=== PATIENT | male | born 1955 | race Caucasian/White ===

== ENCOUNTER → 2024-01-30 12:20 | Outpatient (REF) | payer MEDICARE, OTHER, SELFPAY | LOC: RAD 12:20 | PROVIDERS: ATTENDING PHYSICIAN Nurse Practitioner Family | DX: M79.671 Pain in right foot (principal) | CPT/HCPCS: 73630 ==

== ENCOUNTER → 2024-02-10 12:25 | Outpatient (REF) | payer MEDICARE, OTHER, SELFPAY | LOC: WOUND 12:25 | PROVIDERS: ATTENDING PHYSICIAN Surgery; FAMILY PHYSICIAN Family Medicine | DX: L97.412 Non-pressure chronic ulcer of right heel and midfoot with fat layer exposed (principal); M21.961 Unspecified acquired deformity of right lower leg; I87.2 Venous insufficiency (chronic) (peripheral); I10 Essential (primary) hypertension; R73.03 Prediabetes | CPT/HCPCS: 99204 ==

== ENCOUNTER → 2024-02-17 12:23 | Outpatient (REF) | payer MEDICARE, OTHER, SELFPAY | LOC: WOUND 12:23 | PROVIDERS: ATTENDING PHYSICIAN Surgery; FAMILY PHYSICIAN Family Medicine | DX: L97.412 Non-pressure chronic ulcer of right heel and midfoot with fat layer exposed (principal); M21.961 Unspecified acquired deformity of right lower leg; I87.2 Venous insufficiency (chronic) (peripheral); I10 Essential (primary) hypertension; R73.03 Prediabetes | CPT/HCPCS: 99213 ==

== ENCOUNTER → 2024-03-09 11:13 | Outpatient (REF) | payer MEDICARE, OTHER, SELFPAY | LOC: WOUND 11:13 | PROVIDERS: ATTENDING PHYSICIAN Surgery; FAMILY PHYSICIAN Family Medicine | DX: L97.412 Non-pressure chronic ulcer of right heel and midfoot with fat layer exposed (principal); M21.961 Unspecified acquired deformity of right lower leg; I87.2 Venous insufficiency (chronic) (peripheral); I10 Essential (primary) hypertension; R73.03 Prediabetes | CPT/HCPCS: 93971; 99213 ==

== ENCOUNTER → 2024-03-16 14:16 | Outpatient (REF) | payer MEDICARE, OTHER, SELFPAY | LOC: WOUND 14:16 | PROVIDERS: ATTENDING PHYSICIAN Surgery; FAMILY PHYSICIAN Family Medicine | DX: L97.412 Non-pressure chronic ulcer of right heel and midfoot with fat layer exposed (principal); M21.961 Unspecified acquired deformity of right lower leg; I87.2 Venous insufficiency (chronic) (peripheral); I10 Essential (primary) hypertension; R73.03 Prediabetes | CPT/HCPCS: 99213 ==

== ENCOUNTER → 2024-03-30 13:39 | Outpatient (REF) | payer MEDICARE, OTHER, SELFPAY | LOC: WOUND 13:39 | PROVIDERS: ATTENDING PHYSICIAN Surgery; FAMILY PHYSICIAN Family Medicine | DX: L97.412 Non-pressure chronic ulcer of right heel and midfoot with fat layer exposed (principal); I16.9 Hypertensive crisis, unspecified; M21.961 Unspecified acquired deformity of right lower leg; I87.2 Venous insufficiency (chronic) (peripheral); I10 Essential (primary) hypertension; R73.03 Prediabetes | CPT/HCPCS: 99213 ==

== ENCOUNTER 2024-03-30 14:05 | Emergency (ER) | payer MEDICARE, SELFPAY ==
[2024-03-30 14:30] VITALS: BP 188/119
[2024-03-30 15:29] LABS: % Basophils 0.4 % (0-2); % Immature Granulocytes 0.1 % (0-0.5); % Lymphocytes 25.3 % (20.5-51.1); % Neutrophils 64.2 % (42.2-75.2); Absolute Lymphocytes 2.1 10^3/uL (1.2-3.4); Absolute Monocytes 0.8 10^3/uL (0.1-0.6); Absolute Neutrophils 5.3 10^3/uL (1.4-6.5); Hematocrit 46.9 % (39.0-52.0); Hemoglobin 15.8 g/dL (13.0-18.0); Mean Corp Hgb Conc. 33.7 g/dL (33.0-37.0); Mean Corpuscular Hgb 28.3 pg (27.0-31.0); Mean Corpuscular Volume 83.9 fL (80.0-94.0); Mean Platelet Volume 9.7 fL (7.4-10.4); Nucleated Red Blood Cells % 0 % (-); Platelet Count 203 10^3/uL (130-400); Red Blood Cell Count 5.59 10^6/uL (4.70-6.10); Red Cell Dist. Width 13.6 % (11.5-14.5); White Blood Cell Count 8.3 10^3/uL (4.8-10.8)
[2024-03-30 15:41] LABS: ALT (SGPT) 29 U/L (0-50); AST (SGOT) 34 U/L (17-59); Albumin 4.2 g/dl (3.5-5.0); Alkaline Phosphatase 81 U/L (38-126); Blood Urea Nitrogen 24 mg/dl (9-20); Calcium 9.6 mg/dl (8.4-10.2); Carbon Dioxide 32 mmol/L (22-30); Chloride 102 mmol/L (98-107); Glucose 100 mg/dl (70-99); Potassium 4.3 mmol/L (3.5-5.1); Sodium 140 mmol/L (135-145); Total Bilirubin 1.3 mg/dl (0.2-1.3); Total Protein 7.5 g/dl (6.3-8.2); eGFR > 60.00
[2024-03-30 16:00] VITALS: BP 178/91
[2024-03-30 18:17] VITALS: BP 182/96
--- NOTE | 2024-03-30 18:41 | ED.GENMED ---
History of Present Illness
General
Chief Complaint: Blood Pressure Problem
Source: patient
Exam Limitations: none
Time Seen by Provider: 03/30/24 18:38
Nursing documentation reviewed up to this point in time: agreed with
History of Present Illness
History of Present Illness:
Patient is a very pleasant 68-year-old man who reports that he was at the wound care clinic and was found to have elevated blood pressure today. Patient reports that he was told in the past that his blood pressure was elevated on several occasions
but he reports that he has never been started on any medication and was trying natural supplements instead. Patient denies chest pain, shortness of breath, headache, and dizziness. He denies all symptoms. Patient reports he feels well
Past History
Past History
ED Past Medical History: HTN (Patient told several times that his blood pressure was elevated on several occasions)
ED Past Surgical History: Other
Social History
Tobacco: Non-smoker
Alcohol: Other
Drug: None
Personal: Other
Living: with family
Employment: Employed
Family History
Family History: Other
Review of Systems
Review of Systems
Allergies reviewed?: Yes
All Other Systems: ROS reviewed and negative except as documented in HPI and ROS
Constitutional: Reports no symptoms
EENT: Reports no symptoms
Respiratory: Reports no symptoms
Cardiac: Reports no symptoms
ABD/GI: Reports no symptoms
: Reports no symptoms
Musculoskeletal: Reports no symptoms
Skin: Reports no symptoms
Neurological: Reports no symptoms
Endocrine: Reports no symptoms
Hematologic/Lymphatic: Reports no symptoms
Psychiatric: Reports no symptoms
Phy Exam
Physical Exam
Physical Exam:
Physical Exam
General: no apparent distress, not acutely ill
Neck: supple. no meningeal signs. normal psoterior pharynx
Heart: s1/s2 regular rate and rhythm, no murmur. equal radial pulses.
Lungs: no acute respiratory distress. clear bilaterally
Abdomen: normal bowel sounds. not tender. no CVAT
Neuro: alert and oriented. no focal neurological deficits
Skin: no rash
Psychiatric: well kept. interactive and cooperative
Extremities: no edema. no calf tenderness. negative homans. good distal pulses
Course
Orders/Labs/Results
Orders:
Orders
03/30/24 14:33
ECG [Electrocardiogram (*1)] Urgent
Reason for Study: Hypertension, Benign
EKG- Treatment ONCE
03/30/24 15:06
CMP [Comprehensive Metabolic Panel] Urgent
Complete Blood Count/With Diff Urgent
03/30/24 18:48
Amlodipine [Norvasc] 5 mg PO NOW STA
Abnormal Lab Results
03/30/24
15:06
Absolute Monos (auto) 0.8 H 10^3/uL
(0.1-0.6)
Monocytes % 10.0 H %
(1.7-9.3)
Carbon Dioxide 32 H mmol/L
(22-30)
BUN 24 H mg/dl
(9-20)
Glucose 100 H mg/dl
(70-99)
03/30/24 15:06
03/30/24 15:06
Vital Signs
Initial and Last Documented VS:
Initial Vital Signs
Temp Pulse Resp BP Pulse Ox
98.0 F 78 20 188/119 99
03/30/24 14:30 03/30/24 14:30 03/30/24 14:30 03/30/24 14:30 03/30/24 14:30
Last Documented Vital Signs
Temp Pulse Resp BP Pulse Ox
97.9 F 67 18 182/96 98
03/30/24 16:00 03/30/24 18:17 03/30/24 18:17 03/30/24 18:17 03/30/24 18:17
MDM/Problems Addressed
Differential Diagnosis Includes:
Uncontrolled hypertension, hypertensive urgency, hypertensive emergency
MDM/Problems Addressed:
Patient arrives with elevated blood pressure
Chronic conditions affecting care: HTN
Acute Exacerbation and/or Progression of Chronic Illness:
Patient likely has progression of uncontrolled hypertension
*Pulse Oximetry
Patient hypoxic: no
*EKG
Interpreted by ED Provider?: Yes
Interpretation: abnormal
Comparison EKG: no comparison EKG present
Rate: normal
Rhythm: sinus
[place]: left axis deviation
Interval: normal interval
QRS Pattern: normal QRS
Ischemia: no ischemia
*Licensed Architect Interpretation
Rate: normal
Interpretation: normal
Rhythm: sinus
*Critical Care Note
Total Time (30-74mins, 75-104mins- exclusive of procedures): Not Applicable
Data Reviewed
Source: patient
Patient Management
Social determinants of health affecting care: Living situation and Strong social support
Escalation/DeEscalation of care consider admission/obs:
Patient is asymptomatic and has normal-appearing blood work. Patient will be started on blood pressure medication given that he reports he has had blood pressure that has been elevated on several occasions. Patient assures me he can follow-up with
his doctor in about a week to have his blood pressure rechecked.
ED Attending Note
-
Portions of this chart may have been created with voice recognition software.� Occasional wrong word or��sound alike� substitutions may have occurred due to the inherent limitations of voice recognition software.
Discharge Plan
Departure
Patient Disposition: Home (Routine Discharge)
Date of Disposition: 03/30/24
Time of Disposition: 18:48
Patient with high blood pressure during this ER visit?: Yes
Condition: Good
Covid-19: Not Applicable
Discharge Problem:
Hypertension
Instructions: High Blood Pressure (DC), BLOOD PRESSURE
Prescriptions:
New
amlodipine [Norvasc] 5 mg tablet
5 mg PO DAILY Qty: 30 0RF
Activity Restrictions/Additional Instructions:
Please see your doctor in 5 to 7 days to have your blood pressure rechecked. Please discuss the blood pressure medication that we started you on with your primary care doctor
Interventions
Interventions:
*Risk Screen - Suicide Last Done: 03/30/24 19:05
*General Assessment Last Done: 03/30/24 14:30
*Neglect/Abuse Screening Last Done: 03/30/24 19:05
ED- Fall Risk Assessment Last Done: 03/30/24 19:05
*ED COVID-19 Vaccine History Last Done: 03/30/24 19:05
*Nursing Disposition Last Done: 03/30/24 19:05
ED- Cardiac Assessment Last Done: 03/30/24 18:46
ED- Neurological Assessment Last Done: 03/30/24 18:46
ED- Pulmonary Assessment Last Done: 03/30/24 18:46
Discharge Date and Time
Discharge Date/Time: 03/30/24 19:06
Print Language: ARMENIAN
[2024-03-30] MEDS: NORVASC 5 MG PO (18:56)
== END 2024-03-30 19:06 | disposition home or self-care (01) ==
LOC: EMR 14:05
PROVIDERS: Physician Assistant; EMERGENCY PHYSICIAN Emergency Medicine; FAMILY PHYSICIAN Family Medicine
DX: I10 Essential (primary) hypertension (principal)
CPT/HCPCS: 99284; 80053; 85025; 93005

== ENCOUNTER 2024-06-13 06:16 | Day surgery (SDC) | payer MEDICARE, OTHER, SELFPAY | END 2024-06-13 10:41 | disposition home or self-care (01) | LOC: GI 06:16 | PROVIDERS: ATTENDING PHYSICIAN Specialist | DX: Z12.11 Encounter for screening for malignant neoplasm of colon (principal); D12.3 Benign neoplasm of transverse colon; D12.5 Benign neoplasm of sigmoid colon; K63.5 Polyp of colon; K62.1 Rectal polyp; Z86.0101 Personal history of adenomatous and serrated colon polyps; Z98.890 Other specified postprocedural states | CPT/HCPCS: 45385; 45380; 88305 ==

== ENCOUNTER 2024-09-14 21:01 | Inpatient (IN) | payer MEDICARE, OTHER, SELFPAY ==
[2024-09-14 18:03] VITALS: BP 179/95
[2024-09-14 19:10] VITALS: BMI 33.0
[2024-09-14 19:32] LABS: % Basophils 0.4 % (0-2); % Eosinophils 2.8 % (0-6); % Immature Granulocytes 0.3 % (0-0.5); % Lymphocytes 18.8 % (20.5-51.1); % Monocytes 12.8 % (1.7-9.3); % Neutrophils 64.9 % (42.2-75.2); Absolute Eosinophils 0.2 10^3/uL (0-0.7); Absolute Lymphocytes 1.5 10^3/uL (1.2-3.4); Hematocrit 41.6 % (39.0-52.0); Hemoglobin 14.4 g/dL (13.0-18.0); Mean Corp Hgb Conc. 34.6 g/dL (33.0-37.0); Mean Corpuscular Hgb 28.5 pg (27.0-31.0); Mean Corpuscular Volume 82.2 fL (80.0-94.0); Mean Platelet Volume 9.8 fL (7.4-10.4); Nucleated Red Blood Cells % 0 % (-); Platelet Count 193 10^3/uL (130-400); Red Blood Cell Count 5.06 10^6/uL (4.70-6.10); Red Cell Dist. Width 13.7 % (11.5-14.5); White Blood Cell Count 7.7 10^3/uL (4.8-10.8)
[2024-09-14 19:37] LABS: Lactic Acid 1.4 mmol/L (0.7-2.0)
[2024-09-14 19:40] LABS: ALT (SGPT) 22 U/L (0-50); AST (SGOT) 25 U/L (17-59); Albumin 3.9 g/dl (3.5-5.0); Alkaline Phosphatase 68 U/L (38-126); Blood Urea Nitrogen 28 mg/dl (9-20); Calcium 9.6 mg/dl (8.4-10.2); Carbon Dioxide 27 mmol/L (22-30); Chloride 108 mmol/L (98-107); Estimated Creatinine Clearance 91 ml/min; Glucose 173 mg/dl (70-99); Potassium 3.8 mmol/L (3.5-5.1); Sodium 140 mmol/L (135-145); Total Bilirubin 1.6 mg/dl (0.2-1.3); Total Protein 7.4 g/dl (6.3-8.2); eGFR > 60.00
--- NOTE | 2024-09-14 19:49 | ED.GENMED ---
History of Present Illness
General
Chief Complaint: Skin Problem
Source: patient
Time Seen by Provider: 09/14/24 19:16
History of Present Illness
History of Present Illness:
Note:
CHIEF COMPLAINT(S)
Foot pain and drainage.
HISTORY OF PRESENT ILLNESS
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 The condition has persisted for seven months. He reports that
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 The patient reports no fever, chills, or sweats. There is no history of neuropathy, but
the patient experiences extreme pain. He was advised by a physician that he is pre-diabetic. The pain is described as severe but the patient declined pain medication at this time.
ADDITIONAL HISTORY OBTAINED FROM SOURCES OTHER THAN THE PATIENT
According to prior medical guidance, the patient was advised to keep the foot wound open.
CHRONIC MEDICAL CONDITIONS SIGNIFICANTLY AFFECTING CARE
Chronic conditions affecting care: Pre-diabetes.
SOCIAL DETERMINANTS AFFECTING HEALTH
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 No additional social determinants affecting health were discussed.
ALLERGIES
The patient reports no medication allergies.
Past History
Past History
ED Past Medical History: HTN (Patient told several times that his blood pressure was elevated on several occasions) and NIDDM
ED Past Surgical History: Orthopedic
Social History
Tobacco: Non-smoker
Alcohol: Occasional
Drug: None
Personal: Other
Living: with family
Employment: Employed
Family History
Family History: Other
Review of Systems
Review of Systems
All Other Systems: ROS reviewed and negative except as documented in HPI and ROS
Phy Exam
Physical Exam
Physical Exam:
GENERAL: Alert , in no apparent distress
EYE: conjunctiva clear
Head: Normocephalic atraumatic
NECK: Supple,
ENT: mmm.
LUNGS: no acute respiratory distress
NEUROLOGICAL: Alert and oriented
SKIN: Warm and dry, 7 mm circular wound to the plantar surface of the right foot around the 2nd and 3rd metatarsal, somewhat dry however bandage does have yellowish drainage. Minimal surrounding erythema. Slightly tender to palpation
MUSCULOSKELETAL: well perfused. Palpable pedal and tibial pulse. Cap refill less than 2 seconds. Sensation grossly intact to light touch.
PSYCH: Normal and appropriate interaction.
Scores
Heart Failure Risk
Heart Failure Risk Score: Not Applicable
Heart Score for Chest Pain Patients
STEMI patient?: Not applicable
Withdrawal Assessment of Alcohol
Withdrawal Assessment Completed?: Not applicable
Course
Orders/Labs/Results
Orders:
Orders
09/14/24 19:17
C-Reactive Protein Urgent
Comment: ADD ON
Complete Blood Count/With Diff Urgent
Comprehensive Metabolic Panel Urgent
Erythrocyte Sed Rate Urgent
Comment: ADD ON
Lactate Level [Lactic Acid] Urgent
09/14/24 19:35
Add On- LAB Urgent
Tests Added?: ESR/CRP
09/14/24 19:36
Wound Culture [Wound/Abscess/Other Culture] Urgent
KAI Source: Foot
Specimen Description: Right
Date Specimen was Collected: 09/14/24
Time Specimen was Collected: 20:01
Abnormal Lab Results
09/14/24
19:17
Absolute Monos (auto) 1.0 H 10^3/uL
(0.1-0.6)
Lymphocytes % 18.8 L %
(20.5-51.1)
Monocytes % 12.8 H %
(1.7-9.3)
Chloride 108 H mmol/L
(98-107)
BUN 28 H mg/dl
(9-20)
Glucose 173 H mg/dl
(70-99)
Total Bilirubin 1.6 H mg/dl
(0.2-1.3)
09/14/24 19:17
09/14/24 19:17
Vital Signs
Initial and Last Documented VS:
Initial Vital Signs
Temp Pulse Resp BP Pulse Ox
98.8 F 82 16 179/95 96
09/14/24 18:03 09/14/24 18:03 09/14/24 18:03 09/14/24 18:03 09/14/24 18:03
Last Documented Vital Signs
Temp Pulse Resp BP Pulse Ox
98.8 F 82 16 179/95 96
09/14/24 18:03 09/14/24 18:03 09/14/24 18:03 09/14/24 18:03 09/14/24 19:50
MDM/Problems Addressed
Differential Diagnosis Includes:
The Differential Diagnosis includes, in no particular order and is not limited to:
1. Osteomyelitis
2. Diabetic foot ulcer
3. Cellulitis
4. Gout
5. Peripheral arterial disease
6. Septic arthritis
7. Tarsal tunnel syndrome
MDM/Problems Addressed:
The patient will be admitted for intravenous antibiotics, likely with a peripherally inserted central catheter (PICC line) or midline for ongoing home therapy if osteomyelitis is confirmed. Consultations with infectious disease specialists and
podiatry will be arranged to evaluate for potential surgical intervention if necessary. An MRI may be performed at a later date to evaluate the extent of involvement of deeper structures.
*Pulse Oximetry
SaO2: 96
Oxygen Mode of Delivery: Room air
*Critical Care Note
Total Time (30-74mins, 75-104mins- exclusive of procedures): Not Applicable
Data Reviewed
Review of Other/Old Records Reveals: Radiology Studies
Source: patient and records
Patient Management
Discussion with other providers: Hospitalist and Material Worker
Escalation/DeEscalation of care consider admission/obs:
Case was discussed with hospitalist team who accepts patient for continued evaluation and treatment. I did also notify patient's refrigeration tech, Dr. Khanna, who would like us to hold on antibiotics at this time. She will see the patient in
consultation tomorrow and also agrees with plan for ID consult.
ED Attending Note
-
Portions of this chart may have been created with voice recognition software.� Occasional wrong word or��sound alike� substitutions may have occurred due to the inherent limitations of voice recognition software.
Discharge Plan
Departure
Patient Disposition: Admit
Date of Disposition: 09/14/24
Time of Disposition: 19:50
Presentation/result/management discussed w/ accepting MD/DO: Hospitalist
Discharge Problem:
Acute osteomyelitis of right foot
Prescriptions:
No Action
amlodipine [Norvasc] 5 mg tablet
5 mg PO DAILY Qty: 30 0RF
Referrals:
Ryan Sheets MD [Family Provider, Family Practice]
Interventions
Interventions:
*Risk Screen - Suicide Last Done: 09/14/24 18:03
*General Assessment Last Done: 09/14/24 18:03
*Neglect/Abuse Screening Last Done: 09/14/24 18:03
*ED- Fall Risk Assessment Last Done: 09/14/24 18:03
*ED COVID-19 Vaccine History Last Done: 09/14/24 18:03
ED-Skin Assessment Last Done: 09/14/24 19:20
Discharge Date and Time
Print Language: BELARUSIAN
--- NOTE | 2024-09-14 19:51 | HPS.HSE ---
Family Physician
-
Family Physician: Ryan Sheets
Chief Complaint
-
Right foot wound
History of Present Illness
68-year-old with past medical history of hypertension, prediabetes presented to us with right foot wound. Patient stepped on the nail 7 months ago. He walked with it all day long without knowing he has nail in his foot. as he returned from work
took the shoes he saw the nail and wound started bleeding. he went to the ER was on and abx and did follow up with wound care. he was supposed to rest the leg but never followed the recommendation as he works for [employer]. recently his pain got
worse and the wound was getting worse. he saw his PCP who ordered X ray. he also saw v belt curer two days ago , who ordered the boot which he never got to it yet. X ray results with the impression of osteo, he was recommended to come to the ER.
Today patient denied any fever, chills, chest pain, short of breath. Patient denied any headache, dizzy or syncope. Patient denied any abdominal pain, nausea, vomiting or diarrhea. Patient denied dysuria hematuria.
Wound culture sent from ER
Medical History
Past Medical History
Past Medical History: Reports Other
Additional Past Medical History:
Hypertension, prediabetes
Past Surgical History: Reports Other
Additional Past Surgical History:
Right knee surgery
Social History
Tobacco: Non-smoker
Alcohol: None
Drug: None
Living: With Family
Family History
Family History: Not pertinent
Allergies / Home Medications
Allergies reflects when Allergies were last updated in [facility].
Home Medications with original date entered in [facility]
Allergy/Medication List:
Allergies
Allergy/AdvReac Type Severity Reaction Status Date / Time
No Known Allergies Allergy Unverified 03/30/24 14:30
Home Medications
amlodipine 5 mg tablet (Norvasc) 5 mg PO DAILY #30 tabs 03/30/24
Review of Systems
-
Constitutional: Reports No Symptoms
EENT: Reports No Symptoms
Respiratory: Reports No Symptoms
Cardiac: Reports No Symptoms
Abdomen/GI: Reports No Symptoms
: Reports No Symptoms
Musculoskeletal: Reports No Symptoms
Skin: Reports Other (Wound with swelling on the plantar aspect of the right foot)
Neurological: Reports No Symptoms
Endocrine: Reports No Symptoms
Hematologic/Lymphatic: Reports No Symptoms
Psych: Reports No Symptoms
Physical Exam
Vital Signs
Vital Signs
Temp Pulse Resp BP Pulse Ox
98.8 F 82 16 179/95 96
09/14/24 18:03 09/14/24 18:03 09/14/24 18:03 09/14/24 18:03 09/14/24 19:50
Physical Exam
General: Well Developed, Well Nourished and No Apparent Distress
HEENT: NormoCephalic, Moist mucous membranes and Atraumatic
Respiratory: Clear
Cardiac: S1/S2 and Regular Rhythm; No Murmur or Rub
GI: Soft, Non Tender, Non Distended and Normal Bowel Sounds; No Organomegaly
Rectal: Deferred by Provider
Musculoskeletal: No Clubbing, No Cyanosis and No Edema
Skin: Rash and Other (Wound on the plantar aspect of the foot)
Neuro: AO x 3 and Nonfocal/grossly intact
Psych: Calm
Laboratory Results
-
09/14/24 19:17
09/14/24 19:17
Laboratory Results
Lactic Acid 1.4 mmol/L (0.7-2.0) 09/14/24 19:17
Total Bilirubin 1.6 mg/dl (0.2-1.3) H 09/14/24 19:17
AST 25 U/L (17-59) 09/14/24 19:17
ALT 22 U/L (0-50) 09/14/24 19:17
Alkaline Phosphatase 68 U/L (38-126) 09/14/24 19:17
Data Reviewed
-
Lab Data: Labs Reviewed by me
Impression/Plan
-
# Right foot osteomyelitis
-Dilaudid prn for pain
- MRI of right foot
- Wound culture sent from ER
- Podiatry consulted
# Pre-DM
- Will obtain A1c
- Not on any medications
# Essential hypertension
- Patient is hypertensive in ER
- norvasc added
# DVT prophylaxis
- Heparin subcu
# CODE STATUS
- Full code
--- NOTE | 2024-09-14 19:53 | W.PN.UPDATE ---
Update Note
Progress Note Update
This note serves as an addendum to the H&P by material damage adjuster HIPOLITO Katerina WAGNER
HPI
68M Non smoker , HX uncontrol essential HTN, pre diabetic seen at ER
- reports stepped on nail 6months ago complicated by wound at Rt planter mid foot
- report delayed wound healing
- HX pre diabetic
- OP XR suggest OM
VSS
09/14/24
18:03
Temp 98.8 F
Temp route: Oral
Pulse 82
Blood pressure 179/95
SaO2 96
Oxygen Mode of Delivery Room air
PE
Gen: NAD , not toxic
HEENT: anicteric
Neck: supple
Lungs: CTA
Cor: RRR S1 S2
Abdomen: soft NT NG NRT
AGENT TELEGRAPHER: AAO3
MS: Rt foot Pes planus deformity with hallux valgus , dime size deep wound at lateral planter surface, no active drainage
Psych:
Admission Labs
09/14/24
19:17
WBC 7.7
Creatinine 1.0
eGFR > 60.00
Glucose 173 H
Total Bilirubin 1.6 H
C-Reactive Protein Pending
09/12/24 Rt Foot XR
- new bony destruction of the medial base of the first metatarsal bone concerning for osteomyelitis.
- Soft tissue wound of the plantar aspect of the midfoot as described above. Stable size. More lucent on the current study..
- Severe hallux valgus deformity. Progressed.
- Hammertoe deformities of the second through fifth digits. Stable
- Bony demineralization. Stable.
- Pes planus deformity. Stable
NO PRIOR hospitalist admission:
ASSESSMENT & PLAN
Pending Rx reconciliation
Rt foot first MTB concerning for osteomyelitis
Non healing dime size deep wound at lateral planter surface; no active drainage
Rt foot Pes planus deformity with hallux valgus
- pending CRP
- MRI of Rt Foot
- Hold off ABx
- PRN Analgesia
HX HBP - not on any Meds
- suspect benign HTN untreated
- start Amlodipine 5 mg BID
HX Pre Diabetic
- A1C
DVT Px: SQH
Full code
IP MS
[2024-09-14 20:39] LABS: Erythrocyte Sed Rate 43 mm/hour (0-20)
[2024-09-14] MEDS: NORVASC 5 MG PO (20:44)
[2024-09-14 20:46] VITALS: BP 169/102
--- NOTE | 2024-09-14 22:00 | PTCARENOTE ---
Pt arrived to floor via stretcher from the ED. Pt able to ambulate independently form stretcher to room with slight limp in gate due to right plantar foot wound. Pt AAOx3. Right foot wound assessed, swollen with local erythemia, pink wound bed, no
drainage noted. Wound care complete, see wound care documentation. Pt denies any complaints of pain at rest, only when ambulating. Left arm int capped. Pt resting comfortably at this time. Call bello in reach. Will continue to monitor.
[2024-09-14 22:08] VITALS: BP 166/92; BMI 32.6
[2024-09-14 23:24] VITALS: BP 161/89
--- NOTE | 2024-09-15 07:00 | W.PN.HOSP.TC ---
Today's Communication/Plan
-
pain control
wound care
MRI right foot
hold abx as per ID podiatry
carb controlled diet but no need for routine FS at this time
Assessment / Plan
Assessment / Plan
Physical Exam
General: no acute distress, appears comfortable at this time, obese
HEENT: NormoCephalic, Moist mucous membranes and Atraumatic
Respiratory: Clear to auscultation
Cardiac: S1/S2 and Regular Rhythm; No Murmur or Rub
GI: Soft, Non Tender, Non Distended and Normal Bowel Sounds
Musculoskeletal: No Cyanosis and No Edema, left foot wound dressing clean dry intact
Neuro: AOx3 conversant coherent
Psych: Calm
68M HTN prediabetes obesity here for evaluation chronic non-healing right foot wound present for months.
# Chronic Right foot wound non-healing for months
-Foot X-ray appreciated possible osteo
-Dilaudid prn for pain
- MRI of right foot
- Wound culture sent from ER
- Podiatry ID consults appreciated
# Pre-DM
- A1c appreciated 5.9
- cont carb controlled diet but no need for routine FS at this time
# Essential hypertension
- home Amlodipine increased to BID dosing 5mg
-monitor and titrate antihypertensive regimen as necessary
# DVT prophylaxis
- Heparin subcu
# CODE STATUS
- Full code
discussed with patient and his Carmen
I spent a total of 45 minutes with the patient or on the floor. More than 50% of this time involved counseling and coordination of care.
Anticipated Discharge: > 48 hours
Subjective/Interval History
-
Date of Service: September 15, 2024
No acute distress sitting up comfortably in bed. Overall reports feeling well. Pain well controlled at this time. Family ( Carmen and daughters Carmen and Bruce) present during evaluation.
Objective Data
-
Labs:
Laboratory Results
09/14/24
19:17
WBC 7.7
Hgb 14.4
Hct 41.6
Plt Count 193
Sodium 140
Potassium 3.8
Chloride 108 H
Carbon Dioxide 27
BUN 28 H
Creatinine 1.0
Glucose 173 H
Calcium 9.6
Total Bilirubin 1.6 H
AST 25
ALT 22
Alkaline Phosphatase 68
Vital Signs:
Vital Signs
Temp Pulse Resp BP Pulse Ox
98.5 F 60 18 161/89 96
09/14/24 23:24 09/14/24 23:24 09/14/24 23:24 09/14/24 23:24 09/14/24 23:24
I&O
09/14/24 09/15/24 09/16/24
06:59 06:59 06:59
Intake Total 0 / 0
Balance 0 / 0
[2024-09-15] MEDS: HEPARIN 5000 UNITS SC ×2 (07:20→20:25)
[2024-09-15] MEDS: NORVASC 5 MG PO ×2 (07:34→20:25)
[2024-09-15 07:41] VITALS: BP 152/93
[2024-09-15 07:52] LABS: Glucose - Point of Care 104 mg/dl (70-99)
[2024-09-15 10:25] LABS: Glycohemoglobin (HgbA1c) 5.9 % (4.0-5.6)
--- NOTE | 2024-09-15 11:37 | CON.ID ---
Consultation
-
Date/Time Consultation Requested: September 14, 20242019
Date/Time Consultation Performed: September 15, 2024 1140
Requesting Provider: Dr. Yaw Prajapati
Performing Provider: Dr. Katie Newman
Reason for Consultation: Foot infection
Chief Complaint / Past History
Chief Complaint
Right foot wound
History of Present Illness
68-year-old male with history of hypertension, prediabetes who presented to the ER on September 14 due to worsening right plantar foot wound. . 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 In Dec 2023, he stepped on a nail which penetrated through his boot. He received a
course of antibiotic in the ER but the wound slow to heel. The plantar wound wa manages at [facility] from Jan 2024 to Mar 2024. He then stopped going to [facility]. The last 3 months, the plantar slowly increase in size. His PCP ordere foot xray which showed
bone destruction medial base of the ist [facility] for osteo. His PCP then directed him to the ED. He denies fevers or chills. He has foot discomfort. No other complaints.
Past History
Additional Past Medical History:
Prediabetes
Hypertension
Colon polyps
Allergy History:
No Known Allergies Allergy (Unverified 03/30/24 14:30)
Medications Reviewed: Yes
Current Antibiotics:
NONE
Social History
Tobacco: Non-Smoker
Alcohol: None
Drug: None
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
Family History
Family History: Not Pertinent
Review of Systems
Review of Systems
General: Negative Fever, Chills or Change in Appetite
Cardiovascular: Negative Chest Pain or Dyspnea
Respiratory: Negative Dyspnea or Cough
Gasteroenterology: Negative Nausea, Vomiting or Diarrhea
Genital / Urological: Negative Dysuria or Flank Pain
Skin / Hair / Nails: Negative Rash
Neurological: Negative Dizziness
All systems: All other systems were reviewed and were negative
Vital Signs
Temp Pulse Resp BP Pulse Ox
97.5 F 65 18 152/93 97
09/15/24 07:41 09/15/24 07:41 09/15/24 07:41 09/15/24 07:41 09/15/24 07:59
Physical Exam
Physical Exam
Constitutional: No Acute Distress and Comfortable
Eyes: No Conjunctival Hemorrhage and Sclera Anicteric
Cardiovascular: Regular Rate and S1/S2
Pulmonary: Clear
Gastrointestinal: Soft, Non Tender and Non Distended
Genito-Urinary: Negative CVA Tenderness
Extremities: Other (Right foot pes planus deformity); Negative Edema
Wound: Other (Right foot with hammertoe deformities, flat foot, plantar with approx 1 cm round wound, pale tissue, no deep probe, no surrounding erythema)
Neurological: AO x 3
Lab / Diagnostic Study Results
09/14/24 19:17
09/14/24 19:17
Abs Immat Gran (auto) 0.0 10^3/uL (0-0.05) 09/14/24 19:17
Absolute Neuts (auto) 5.0 10^3/uL (1.4-6.5) 09/14/24 19:17
Absolute Lymphs (auto) 1.5 10^3/uL (1.2-3.4) 09/14/24 19:17
Absolute Monos (auto) 1.0 10^3/uL (0.1-0.6) H 09/14/24 19:17
Absolute Basos (auto) 0.0 10^3/uL (0-0.2) 09/14/24 19:17
Immature Gran % 0.3 % (0-0.5) 09/14/24 19:17
Neutrophils % 64.9 % (42.2-75.2) 09/14/24 19:17
Lymphocytes % 18.8 % (20.5-51.1) L 09/14/24 19:17
Monocytes % 12.8 % (1.7-9.3) H 09/14/24 19:17
Eosinophils % 2.8 % (0-6) 09/14/24 19:17
Basophils % 0.4 % (0-2) 09/14/24 19:17
ESR 43 mm/hour (0-20) H 09/14/24 19:17
Lactic Acid 1.4 mmol/L (0.7-2.0) 09/14/24 19:17
C-Reactive Protein 37.40 mg/L (0.0-10.00) H 09/14/24 19:17
Microbiology Results
Micro:
09/14/24 20:02 Wound Culture - Pending
Foot - Right Gram Stain - Pending
09/12/24 Foot XRAY: Appearance of new bony destruction of the medial base of the first metatarsal bone concerning for osteomyelitis. Soft tissue wound of the plantar aspect of the midfoot as described above. Stable size. More lucent on the current
study..
Severe hallux valgus deformity. Progressed. Hammertoe deformities of the second through fifth digits. Stable
Assessment / Plan
# Worsening of chronic wound R plantar foot
- Pt self-discontinued going to [facility] since 03/2024
- Wound does not look grossly infected. No probing.
- Agree with Podiatry. Foot XRAY report of R first MT bone osteo DOES NOT CLINICALLY CORRELATE as pt without wound over site.
- MRI pending.
- Await MRI result to assess if any need for abx.
Care Review
Plan reviewed with: Physician (Dr. Shaun Khanna)
[2024-09-15 11:42] LABS: Glucose - Point of Care 99 mg/dl (70-99)
--- NOTE | 2024-09-15 12:07 | W.CS.POD ---
Addendum entered and electronically signed by Shaun Khanna DPM 09/15/24 12:32:
HbA1c 5.9
Pending wound cultures
WBC count is WNL
Original Note:
Consult Summary - Podiatry
-
68-year-old male known to me from office consult on 09/13/24, has been referred by his PCP due to chronic non healing wound right plantar aspect. I recommended cam walker and cont Po abx.
Patient is a diet controlled diabetic, not on any hypoglycemic medications. 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 He saw [facility] wound care till March of 2024 and
he stopped going. He had right foot swelling and pain, So his primary care put him on p.o. antibiotics and got x-ray of the right foot which shows possible osteomyelitic changes around the first metatarsal base so they admitted him for further
evaluation and management. Patient denies any fever chills. he does not have any pain when he is lying down. He is currently not on any antibiotics pending MRI of the right foot.
Reviewed past medical history medications and allergies.
On physical examination: Right foot minimal swelling. Diminished pedal pulses both DP and PT
Diminished gross and protective sensation to bilateral feet
Right foot with rocker-bottom foot deformity and multiple digital deformities along with a large bunion deformity
Right plantar aspect under the fifth metatarsal shaft, pink granular ulcer about 2 cm x 2 cm x 1 cm depth, wound has thick keratotic edges, there is serous drainage with foul odor noted, wound does not probe to the bone.
There is no red streaking up the foot, there is no local erythema noted, no signs of any abscess
Assessment and plan: Chronic nonhealing right plantar wound
Possible osteomyelitis changes per x-ray
Diet controlled type II diabetic
Charcot deformity of the right foot
Plan: Patient evaluated at bedside.
I have reviewed Xray myself and non convinced about osteomyelitis at his Rt 1st met base , since he has severe osteoarthritis and bone spurruing to most o his joints in his foot
Currently holding on or holding off antibiotics till MRI is done
I will order non invasive vascular studies
DH pressure-relief shoe, patient right heel wt bear only
Discussed with patient about strict nonweightbearing is needed to help heal the ulceration, discussed the risk of bone infection, amputations, risk of losing his foot discussed. Patient is aware of all the risk factors with nonhealing of the ulcer
Dry gauze dressings to the right foot
Podiatry will follow
[2024-09-15 15:33] VITALS: BP 158/93
[2024-09-15 23:19] VITALS: BP 152/88
[2024-09-16 06:52] VITALS: BP 164/89
--- NOTE | 2024-09-16 07:02 | W.PN.HOSP.TC ---
Today's Communication/Plan
-
start Lisinopril
cont blood pressure control
abx as per ID
NPO after midnight for OR Debridement as per Podiatry, patient is Low risk for complication from this surgical procedure and risk is not prohibitive
Assessment / Plan
Assessment / Plan
Physical Exam
General: no acute distress, appears comfortable at this time, obese
HEENT: NormoCephalic, Moist mucous membranes and Atraumatic
Respiratory: Clear to auscultation
Cardiac: S1/S2 and Regular Rhythm; No Murmur or Rub
GI: Soft, Non Tender, Non Distended and Normal Bowel Sounds
Musculoskeletal: No Cyanosis and No Edema, left foot wound dressing clean dry intact
Neuro: AOx3 conversant coherent
Psych: Calm
68M HTN prediabetes obesity here for evaluation chronic non-healing right foot wound present for months.
# Chronic Right foot wound non-healing for months
- Foot X-ray appreciated possible osteo, ruled out in MRI as follows
- Dilaudid Tylenol prn for pain
- MRI of right foot appreciated: 2.8 cm abscess right midfoot deep, severe cellulitis myositis, severe arthritis, no MRI evidence osteomyelitis
- Pending Vascular studies
- Wound culture sent from ER, follow up
- ID consult appreciated started on Cefipime
- Podiatry eval appreciated NPO after midnight for OR I&D tomorrow Tuesday
- Patient at low risk for complications surgical intervention as above and risk is not prohibitive
# Pre-DM
- A1c appreciated 5.9
- cont carb controlled diet but no need for routine FS at this time
# Essential hypertension
- home Amlodipine increased to BID dosing 5mg
- Low dose Lisinopril 2.5 mg daily added
- monitor and titrate antihypertensive regimen as necessary
# DVT prophylaxis
- Heparin subcu
# CODE STATUS
- Full code
discussed with patient and his daughter Lalita at bedside
I spent a total of 40 minutes with the patient or on the floor. More than 50% of this time involved counseling and coordination of care.
Anticipated Discharge: 24 - 48 hours
Subjective/Interval History
-
Date of Service: September 16, 2024
No acute distress sitting up comfortably in chair. Overall reports feeling well. Pain well controlled, has not required prn pain med. Denies new acute issues at this time. Daughter Lalita present during evaluation.
Objective Data
-
Labs:
Laboratory Results
09/16/24
06:00
WBC Pending
Hgb Pending
Hct Pending
Plt Count Pending
Sodium Pending
Potassium Pending
Chloride Pending
Carbon Dioxide Pending
BUN Pending
Creatinine Pending
Glucose Pending
Calcium Pending
Vital Signs:
Vital Signs
Temp Pulse Resp BP Pulse Ox
97.5 F 61 20 152/88 95
09/15/24 23:19 09/15/24 23:19 09/15/24 23:19 09/15/24 23:19 09/15/24 23:19
I&O
09/15/24 09/16/24 09/17/24
06:59 06:59 06:59
Intake Total 0 / 0 840 / 840
Balance 0 / 0 840 / 840
[2024-09-16] MEDS: HEPARIN 5000 UNITS SC ×2 (07:50→20:36)
[2024-09-16] MEDS: NORVASC 5 MG PO ×2 (07:50→20:36)
[2024-09-16 07:51] LABS: Hematocrit 43.6 % (39.0-52.0); Hemoglobin 14.3 g/dL (13.0-18.0); Mean Corp Hgb Conc. 32.8 g/dL (33.0-37.0); Mean Corpuscular Hgb 27.9 pg (27.0-31.0); Mean Platelet Volume 9.4 fL (7.4-10.4); Platelet Count 212 10^3/uL (130-400); Red Blood Cell Count 5.13 10^6/uL (4.70-6.10); Red Cell Dist. Width 13.5 % (11.5-14.5); White Blood Cell Count 7.1 10^3/uL (4.8-10.8)
[2024-09-16 08:20] LABS: Blood Urea Nitrogen 24 mg/dl (9-20); Carbon Dioxide 25 mmol/L (22-30); Chloride 109 mmol/L (98-107); Estimated Creatinine Clearance 100 ml/min; Glucose 125 mg/dl (70-99); Phosphorus 3.2 mg/dl (2.5-4.5); Potassium 4.3 mmol/L (3.5-5.1); Sodium 140 mmol/L (135-145); eGFR > 60.00
[2024-09-16] MEDS: STERILE WATER FOR INJECTION 10 ML IV ×2 (09:54→17:08)
[2024-09-16] MEDS: MAXIPIME 2000 MG IV ×2 (09:54→17:08)
--- NOTE | 2024-09-16 11:50 | W.PN.ID1 ---
Date of Service
Date of Service: September 16, 2024
Today's Communication
Start cefepime.
Assessment / Plan
# Right foot plantar wound R with underlying abscess
- Pt self-discontinued going to [facility] since 03/2024
- MRI NO osteo; + 2.8 cm abscess deep to wound
- Await input from Podiatry regarding drainage of abscess
- Start empiric cefepime.
Chief Complaint
-: Other (Foot wound)
Subjective / Review of Systems
No new complaints.
Vital Signs / Physical Exam
Vital Signs
Vital Signs
Temp Pulse Resp BP Pulse Ox
98.3 F 63 16 164/89 96
09/16/24 06:52 09/16/24 07:50 09/16/24 06:52 09/16/24 07:50 09/16/24 08:03
Physical Exam
Constitutional: No Acute Distress and Comfortable
Cardiovascular: Regular Rate and S1/S2
Pulmonary: Clear
Gastrointestinal: Soft, Non Tender, Non Distended and Normal Bowel Sounds
Wound: Other (R foot dressing intact)
Neurological: AO x 3
Objective Data
Lab Data
Lab Results
09/16/24 07:27
09/16/24 07:27
ESR 43 mm/hour (0-20) H 09/14/24 19:17
Estimated Creat Clear 100 ml/min 09/16/24 07:27
Lactic Acid 1.4 mmol/L (0.7-2.0) 09/14/24 19:17
Total Bilirubin 1.6 mg/dl (0.2-1.3) H 09/14/24 19:17
AST 25 U/L (17-59) 09/14/24 19:17
ALT 22 U/L (0-50) 06/20/25 19:17
Alkaline Phosphatase 68 U/L (38-126) 09/14/24 19:17
C-Reactive Protein 37.40 mg/L (0.0-10.00) H 09/14/24 19:17
Most recent labs reviewed.
Micro Results:
09/14/24 20:02 Wound Culture - Preliminary
Foot - Right Gram Stain - Preliminary
09/15/24 17:32 MRSA Screen - Pending
Nose
09/15/24 MRI RLE: 2.8 cm ABSCESS in the plantar soft tissues of the right midfoot deep to an overlying wound.
2. SEVERE CELLULITIS and myositis in the plantar and lateral aspect of the midfoot.
3. No MRI evidence for acute osteomyelitis.
09/12/24 Foot XRAY: Appearance of new bony destruction of the medial base of the first metatarsal bone concerning for osteomyelitis. Soft tissue wound of the plantar aspect of the midfoot as described above. Stable size. More lucent on the current
study..
Severe hallux valgus deformity. Progressed. Hammertoe deformities of the second through fifth digits. Stable
--- NOTE | 2024-09-16 13:21 | W.PN.POD ---
Today's Communication
Today's Communication
Patient scheduled for Rt foot I And D tomorrow 09/17/2024
Assessment / Plan
-
Chronic nonhealing right plantar wound
Rt foot cellultis
No evidence of any osteomyelitis per MRI
Diet controlled type II diabetic
Charcot deformity of the right foot.
Plan : Patient evaluated,
Reviewed right foot MRI, There is no MRI evidence for osseous signal abnormality to suggest acute osteomyelitis. There is very severe arthritis in the second, third, fourth, and fifth tarsometatarsal joints with severe joint space loss, mild
subchondral bone marrow edema, and small subchondral cysts. The Lisfranc ligament is intact.
MRI shows 2.8 cm ABSCESS in the plantar soft tissues of the right midfoot deep to an overlying wound
Discussed with patient that there is an abscess per MRI near her is a ulcer site so discussed that we need to drain his abscess surgically
Discussed all the risks and complications of nonhealing, reinfection, more surgeries. No guarantees given to save his limb or life, patient agreed to proceed with right foot I&D
Schedule him for tomorrow 09/17/2024 for surgery
Discussed with hospitalist to clear him for the procedure
Appreciate ID input
Patient has a DH pressure-relief shoe at bedside and he is able to use it
Dry gauze dressings applied,
PEnding Non invasive vascular studies
Subjective
Chief Complaint
Rt foot infection, non healing ulcer plantar aspect
Subjective
Patient seen at bedside, no new complaints, no fever or chills. He still has some pain around the right lateral foot.
Objective
Temp Pulse Resp BP Pulse Ox
98.3 F 63 16 164/89 96
09/16/24 06:52 09/16/24 07:50 09/16/24 06:52 09/16/24 07:50 09/16/24 08:03
09/16/24 07:27
09/16/24 07:27
Vital Signs and Lab results were reviewed.
Exam : Right foot minimal edema, Diminished pedal pulses both DP and PT
Diminished gross and protective sensation to bilateral feet
Right foot with rocker-bottom foot deformity and multiple digital deformities along with a large bunion deformity
Right plantar aspect under the fifth metatarsal shaft, pink granular ulcer about 2 cm x 2 cm x 1 cm depth, wound has thick keratotic edges, ulcer is dry in nature, resolved foul odor, wound does not probe to the bone.
There is no red streaking up the foot, there is no local erythema noted, no signs of any abscess
[2024-09-16 15:50] VITALS: BP 154/91
[2024-09-16] MEDS: ZESTRIL 2.5 MG PO (17:07)
[2024-09-16 23:32] VITALS: BP 153/87
[2024-09-17] VITALS (10 sets, daily range): BP systolic 20–155; BP diastolic 60–89
[2024-09-17] MEDS: MAXIPIME 2000 MG IV ×3 (03:11→17:15)
[2024-09-17] MEDS: STERILE WATER FOR INJECTION 10 ML IV ×3 (03:11→17:15)
[2024-09-17] MEDS: FLUSH (NSS) 1 FLUSH IV (03:11)
[2024-09-17] MEDS: TYLENOL 650 MG PO (03:26)
[2024-09-17 07:07] LABS: Hemoglobin 14.4 g/dL (13.0-18.0); Mean Corp Hgb Conc. 34.3 g/dL (33.0-37.0); Mean Corpuscular Hgb 28.6 pg (27.0-31.0); Mean Corpuscular Volume 83.5 fL (80.0-94.0); Mean Platelet Volume 9.9 fL (7.4-10.4); Platelet Count 229 10^3/uL (130-400); Red Blood Cell Count 5.03 10^6/uL (4.70-6.10); Red Cell Dist. Width 13.6 % (11.5-14.5); White Blood Cell Count 6.9 10^3/uL (4.8-10.8)
--- NOTE | 2024-09-17 07:07 | PTCARENOTE ---
Pt aaox3 able to make his needs known.Pt NPO from NH for procedure.Pt had 1 set of CHG wipes.No other complaints noted.Pt call bello in reach.
[2024-09-17 07:23] LABS: Blood Urea Nitrogen 25 mg/dl (9-20); Calcium 8.9 mg/dl (8.4-10.2); Carbon Dioxide 25 mmol/L (22-30); Chloride 107 mmol/L (98-107); Estimated Creatinine Clearance 90 ml/min; Glucose 124 mg/dl (70-99); Phosphorus 3.5 mg/dl (2.5-4.5); Potassium 4.5 mmol/L (3.5-5.1); Sodium 139 mmol/L (135-145); eGFR > 60.00
--- NOTE | 2024-09-17 07:26 | W.PN.HOSP.TC ---
Today's Communication/Plan
-
abx as per ID
NPO for rt foot I&D with podiatry today, low risk, risk is not prohibitive
cont blood pressure control
new lisinopril 2.5 mg increased to 5mg to start tomorrow with holding parameters
Assessment / Plan
Assessment / Plan
Physical Exam
General: no acute distress, appears comfortable at this time, obese
HEENT: NormoCephalic, Moist mucous membranes and Atraumatic
Respiratory: Clear to auscultation
Cardiac: S1/S2 and Regular Rhythm; No Murmur or Rub
GI: Soft, Non Tender, Non Distended and Normal Bowel Sounds
Musculoskeletal: No Cyanosis and No Edema, left foot wound dressing clean dry intact
Neuro: AOx3 conversant coherent
Psych: Calm
68M HTN prediabetes obesity here for evaluation chronic non-healing right foot wound present for months.
# Chronic Right foot wound non-healing for months
- Foot X-ray appreciated possible osteo, ruled out in MRI as follows
- Dilaudid Tylenol prn for pain
- MRI of right foot appreciated: 2.8 cm abscess right midfoot deep, severe cellulitis myositis, severe arthritis, no MRI evidence osteomyelitis
- Pending Vascular studies
- Wound culture sent from ER, follow up
- ID consult appreciated started on Cefipime
- Podiatry eval appreciated NPO for OR I&D today Tuesday
- Patient at low risk for complications surgical intervention as above and risk is not prohibitive
# Pre-DM
- A1c appreciated 5.9
- cont carb controlled diet but no need for routine FS at this time
# Essential hypertension
- home Amlodipine increased to BID dosing 5mg
- Low dose Lisinopril 2.5 mg daily added titrated up to 5 mg daily
- monitor and titrate antihypertensive regimen as necessary
# DVT prophylaxis
- Heparin subcu
# CODE STATUS
- Full code
discussed with patient and his daughter Lalita at bedside
I spent a total of 40 minutes with the patient or on the floor. More than 50% of this time involved counseling and coordination of care.
Anticipated Discharge: 24 - 48 hours
Subjective/Interval History
-
Date of Service: September 17, 2024
No acute distress. Sitting up comfortably in bed. NPO awaiting I&D right foot
Objective Data
-
Labs:
Laboratory Results
09/17/24
06:23
WBC 6.9
Hgb 14.4
Hct 42.0
Plt Count 229
Sodium 139
Potassium 4.5
Chloride 107
Carbon Dioxide 25
BUN 25 H
Creatinine 1.0
Glucose 124 H
Calcium 8.9
Vital Signs:
Vital Signs
Temp Pulse Resp BP Pulse Ox
98.4 F 63 18 153/87 96
09/16/24 23:32 09/16/24 23:32 09/16/24 23:32 09/16/24 23:32 09/16/24 23:32
I&O
09/16/24 09/17/24 09/18/24
06:59 06:59 06:59
Intake Total 840 / 840 720 / 720
Balance 840 / 840 720 / 720
[2024-09-17] MEDS: ZESTRIL 2.5 MG PO (08:23)
[2024-09-17] MEDS: NORVASC 5 MG PO ×2 (08:23→19:55)
[2024-09-17] MEDS: HEPARIN 5000 UNITS SC ×2 (08:25→19:57)
--- NOTE | 2024-09-17 11:10 | W.PN.ID1 ---
Date of Service
Date of Service: September 17, 2024
Today's Communication
OR today.
Assessment / Plan
# Right foot plantar wound R with underlying abscess
- Pt self-discontinued going to [facility] since 03/2024
- Outpatient wound cx: MSSA
- MRI NO osteo; + 2.8 cm abscess deep to wound
- To OR today per Podiatry. To send cx's.
- Continue cefepime for now.
Chief Complaint
-: Other (Foot wound)
Subjective / Review of Systems
Feels well.
Vital Signs / Physical Exam
Vital Signs
Vital Signs
Temp Pulse Resp BP Pulse Ox
98.3 F 57 16 155/89 96
09/17/24 07:00 09/17/24 08:23 09/17/24 07:00 09/17/24 08:23 09/17/24 07:00
Physical Exam
Constitutional: No Acute Distress and Comfortable
Pulmonary: Clear
Gastrointestinal: Soft, Non Tender, Non Distended and Normal Bowel Sounds
Wound: Other
Neurological: AO x 3
Objective Data
Lab Data
Lab Results
09/17/24 06:23
09/17/24 06:23
ESR 43 mm/hour (0-20) H 09/14/24 19:17
Estimated Creat Clear 90 ml/min 09/17/24 06:23
Lactic Acid 1.4 mmol/L (0.7-2.0) 09/14/24 19:17
Total Bilirubin 1.6 mg/dl (0.2-1.3) H 09/14/24 19:17
AST 25 U/L (17-59) 09/14/24 19:17
ALT 22 U/L (0-50) 09/14/24 19:17
Alkaline Phosphatase 68 U/L (38-126) 09/14/24 19:17
C-Reactive Protein 37.40 mg/L (0.0-10.00) H 09/14/24 19:17
Most recent labs reviewed.
Micro Results:
09/15/24 17:32 MRSA Screen - Final
Nose No Methicillin Resistant Staphylococcus aureus isolated.
09/14/24 20:02 Wound Culture - Preliminary
Foot - Right Gram Stain - Preliminary
09/15/24 MRI RLE: 2.8 cm ABSCESS in the plantar soft tissues of the right midfoot deep to an overlying wound.
2. SEVERE CELLULITIS and myositis in the plantar and lateral aspect of the midfoot.
3. No MRI evidence for acute osteomyelitis.
09/12/24 Foot XRAY: Appearance of new bony destruction of the medial base of the first metatarsal bone concerning for osteomyelitis. Soft tissue wound of the plantar aspect of the midfoot as described above. Stable size. More lucent on the current
study..
Severe hallux valgus deformity. Progressed. Hammertoe deformities of the second through fifth digits. Stable
Care Review
Plan reviewed with: Physician
--- NOTE | 2024-09-17 14:35 | W.SUR.POST ---
Surgical Immediate Post Op
Note
Pre Op Diagnosis: Rt foot chronic non healing ulcer with 2.8 cm abscess per MRI
Post Op Diagnosis: No signs of any abscess identified after exploration Rt foot
Procedure Performed: Rt foot Incision and exploration to drain abscess
Primary Surgeon: Dr. Khanna
Secondary Surgeons: None
Anesthesia: MAC with local block
Estimated Blood Loss: 2 cc's
Fluids: None
Drains/Shunts: None
Specimens/Cultures: Aerobic and anaerobic cultures
Doppler/Duplex/Angio (Y/N): N
Complications: None
Operative Findings: There was no obvious signs of any abscess at mid foot ulcer site. Healthy pink wound with healthy bleeding noted from base of the ulcer
Patient stable in PACU with intact vascular status and stable vital signs
--- NOTE | 2024-09-17 15:13 | PTCARENOTE ---
Pt returned to room after right foot I and D. VSS, pt denies pain at this time. Right foot dressing c/d/i, pt instructed to ring for assistance to get oob with darco shoe, heel wt bearing only. Regular diet resumed.
--- NOTE | 2024-09-17 15:51 | CM ---
Met with patient who was just out of OR. He stated that he lives with his in a two story house with three steps to enter. He described himself as independent with his bathing, dressing, all ADLs and personal care. He can cook, clean,
shower and do laundry. Patient drives and can get to his MD appointments and does the shopping. He has a walker that he does not use. He has never had VN services or been to a SNF.
Patient has a prescription plan and uses, [facility] in [place] for all of his medications.
Patient's PCP is, Ryan Sheets.
Plan: Case management will continue to follow and assist with discharge planning. Patient stated he would like to return home when cleared for discharge.
[2024-09-18] MEDS: MAXIPIME 2000 MG IV ×2 (02:08→09:39)
[2024-09-18] MEDS: STERILE WATER FOR INJECTION 10 ML IV ×2 (02:08→09:39)
[2024-09-18 03:20] VITALS: BP 146/93
[2024-09-18 07:30] LABS: Hematocrit 45.3 % (39.0-52.0); Hemoglobin 15.5 g/dL (13.0-18.0); Mean Corp Hgb Conc. 34.2 g/dL (33.0-37.0); Mean Corpuscular Hgb 28.4 pg (27.0-31.0); Mean Platelet Volume 9.6 fL (7.4-10.4); Platelet Count 290 10^3/uL (130-400); Red Blood Cell Count 5.46 10^6/uL (4.70-6.10); Red Cell Dist. Width 13.4 % (11.5-14.5); White Blood Cell Count 12.6 10^3/uL (4.8-10.8)
--- NOTE | 2024-09-18 07:39 | W.PN.HOSP.TC ---
Today's Communication/Plan
-
discharge
Assessment / Plan
Assessment / Plan
Physical Exam
General: no acute distress, appears comfortable at this time, obese
HEENT: NormoCephalic, Moist mucous membranes and Atraumatic
Respiratory: Clear to auscultation
Cardiac: S1/S2 and Regular Rhythm; No Murmur or Rub
GI: Soft, Non Tender, Non Distended and Normal Bowel Sounds
Musculoskeletal: No Cyanosis and No Edema, right foot wound dressing clean dry intact, surgical shoe in place
Neuro: AOx3 conversant coherent
Psych: Calm
68M HTN prediabetes obesity here for evaluation chronic non-healing right foot wound present for months.
# Chronic Right foot wound non-healing for months
- Foot X-ray appreciated possible osteo, ruled out in MRI as follows
- Dilaudid Tylenol prn for pain (has not required)
- MRI of right foot appreciated: 2.8 cm abscess right midfoot deep, severe cellulitis myositis, severe arthritis, no MRI evidence osteomyelitis
- Vascular studies appreciated no significant arterial disease
- Wound culture from ER noted no significant growth
- Podiatry eval appreciated taken to OR for I&D 09/17/24 no deep tissue necrosis, deep tissue purulence, or drainage was found
- ID consult appreciated empiric Cefipime to transition to Cephalexin 500 mg QID 7 more days.
# Pre-DM
- A1c appreciated 5.9
- cont carb controlled diet but no need for routine FS at this time
# Essential hypertension
- home Amlodipine increased to BID dosing 5mg
- Low dose Lisinopril 2.5 mg daily added titrated up to 5 mg daily
- Blood pressure control since improved
# DVT prophylaxis
- Heparin subcu
# CODE STATUS
- Full code
Medically stable for discharge home with outpatient follow up recommendations.
Total Time Preparing Discharge ___40____ minutes including examination of the patient, summary of the hospital stay, instructions for continuing care to all relevant caregivers; and preparation of discharge records, prescriptions, and referral
forms if necessary.
Anticipated Discharge: Today
Subjective/Interval History
-
Date of Service: September 18, 2024
No acute distress, overall reports feeling well, ambulatory with surgical shoe respecting heel weight only recommendation. Denies new acute issues, eager to go home.
Objective Data
-
Labs:
Laboratory Results
09/18/24
07:07
WBC 12.6 H
Hgb 15.5
Hct 45.3
Plt Count 290 D
Sodium Pending
Potassium Pending
Chloride Pending
Carbon Dioxide Pending
BUN Pending
Creatinine Pending
Glucose Pending
Calcium Pending
Total Bilirubin Pending
AST Pending
ALT Pending
Alkaline Phosphatase Pending
Vital Signs:
Vital Signs
Temp Pulse Resp BP Pulse Ox
97.7 F 89 18 146/93 94
09/18/24 03:20 09/18/24 03:20 09/18/24 03:20 09/18/24 03:20 09/18/24 03:20
I&O
09/17/24 09/18/24 09/19/24
06:59 06:59 06:59
Intake Total 720 / 720 1200 / 1200
Output Total 500 / 500
Balance 720 / 720 700 / 700
[2024-09-18 08:02] VITALS: BP 149/89
[2024-09-18] MEDS: NORVASC 5 MG PO (08:02)
[2024-09-18] MEDS: ZESTRIL 5 MG PO (08:02)
[2024-09-18] MEDS: HEPARIN SC ×2 (08:03→08:08)
[2024-09-18 08:13] LABS: ALT (SGPT) 21 U/L (0-50); AST (SGOT) 23 U/L (17-59); Albumin 4.2 g/dl (3.5-5.0); Alkaline Phosphatase 77 U/L (38-126); Blood Urea Nitrogen 35 mg/dl (9-20); Calcium 9.6 mg/dl (8.4-10.2); Carbon Dioxide 23 mmol/L (22-30); Chloride 108 mmol/L (98-107); Estimated Creatinine Clearance 90 ml/min; Glucose 151 mg/dl (70-99); Potassium 4.5 mmol/L (3.5-5.1); Sodium 140 mmol/L (135-145); Total Bilirubin 1.1 mg/dl (0.2-1.3); Total Protein 7.9 g/dl (6.3-8.2); eGFR > 60.00
--- NOTE | 2024-09-18 09:14 | WOUNDNOTE ---
ELEANOR RN NOTE: Confirmed with Dr. Khanna can cancel wound consult.
--- NOTE | 2024-09-18 10:09 | W.PN.ID1 ---
Date of Service
Date of Service: September 18, 2024
Today's Communication
- Can transition cefepime (d3) to cephalexin 500mg po qid x 7 more days.
Assessment / Plan
# Worsening of chronic Right foot plantar wound R
- Pt self-discontinued going to [facility] since 03/2024
- Outpatient wound cx: MSSA
- Arterial duplex no PAD
- MRI NO osteo; + 2.8 cm abscess deep to wound
- However 09/17 OR: no findings of abscess
- Can transition cefepime (d3) to cephalexin 500mg po qid x 7 more days.
Chief Complaint
-: Other (Foot wound)
Subjective / Review of Systems
No complaints.
Vital Signs / Physical Exam
Vital Signs
Vital Signs
Temp Pulse Resp BP Pulse Ox
98.1 F 90 18 149/89 97
09/18/24 08:02 09/18/24 08:02 09/18/24 08:02 09/18/24 08:02 09/18/24 08:02
Physical Exam
Constitutional: No Acute Distress
Cardiovascular: Regular Rate and S1/S2
Pulmonary: Clear
Gastrointestinal: Soft, Non Tender, Non Distended and Normal Bowel Sounds
Genito-Urinary: Negative CVA Tenderness
Neurological: AO x 3
Objective Data
Lab Data
Lab Results
09/18/24 07:07
09/18/24 07:07
ESR 43 mm/hour (0-20) H 09/14/24 19:17
Estimated Creat Clear 90 ml/min 09/18/24 07:07
Lactic Acid 1.4 mmol/L (0.7-2.0) 09/14/24 19:17
Total Bilirubin 1.1 mg/dl (0.2-1.3) 09/18/24 07:07
AST 23 U/L (17-59) 09/18/24 07:07
ALT 21 U/L (0-50) 09/18/24 07:07
Alkaline Phosphatase 77 U/L (38-126) 09/18/24 07:07
C-Reactive Protein 37.40 mg/L (0.0-10.00) H 09/14/24 19:17
Most recent labs reviewed.
Micro Results:
09/17/24 14:15 Wound Culture - Pending
Foot - Right Gram Stain - Preliminary
09/17/24 14:15 Anaerobic Culture - Pending
Foot - Right
09/14/24 20:02 Wound Culture - Final
Foot - Right Gram Stain - Final
09/15/24 17:32 MRSA Screen - Final
Nose No Methicillin Resistant Staphylococcus aureus isolated.
09/15/24 MRI RLE: 2.8 cm ABSCESS in the plantar soft tissues of the right midfoot deep to an overlying wound.
2. SEVERE CELLULITIS and myositis in the plantar and lateral aspect of the midfoot.
3. No MRI evidence for acute osteomyelitis.
09/12/24 Foot XRAY: Appearance of new bony destruction of the medial base of the first metatarsal bone concerning for osteomyelitis. Soft tissue wound of the plantar aspect of the midfoot as described above. Stable size. More lucent on the current
study..
Severe hallux valgus deformity. Progressed. Hammertoe deformities of the second through fifth digits. Stable
Care Review
Plan reviewed with: Physician (Dr. Prajapati)
[2024-09-18] MEDS: TUMS CHEWABLE TABLET 400 MG PO (10:31)
--- NOTE | 2024-09-18 13:57 | W.DCSUMMARY ---
Discharge Summary
Discharge Data
Date of Admission: 09/14/24
Date of Discharge: 09/18/24
-
Pending Results: Yes
Additional Pending Results:
official culture results
Discharge Plan
-
Patient Disposition: Home (Routine Discharge)
Discharge Diagnosis/Procedures: Chronic Right foot wound non-healing for months
Osteomyelitis and Abscess ruled out
Severe Arthritis
Prediabetes
Obesity
Hypertension
Condition: Fair
Diet: Regular
Additional Activity: Pressure relief shoe right foot, heel weight bear only
Driving Restrictions: As prior to admission
Wound Care: adaptic and dry gauze dressing changes right foot daily
Activity Restrictions/Additional Instructions:
Follow up with primary care provider in 1 week of discharge and keep your appointment with Podiatry September 24Tuesday 1pm at [facility].
For chronic non-healing right foot wound, Keflex has been prescribed for 7 days as per infectious disease recommendations.
For hypertension, home amlodipine has been increased to twice a day and Lisinopril was added.
Please take medications as prescribed/recommended and follow up with primary care provider and/or other healthcare provider involved in your care for refills and/or further adjustment to your medication regimen as necessary.
Referrals:
Ryan Sheets MD [Family Provider, Family Practice] - in one week
Shaun Khanna DPM [Specified Professional Personl, Podiatry] - 09/24/24 1:00 pm
Prescriptions:
New
amlodipine 5 mg Tablet
5 mg PO BID Qty: 60 0RF
cephalexin 500 mg Capsule
500 mg PO QID 7 Days Qty: 28 0RF
lisinopril 5 mg Tablet
5 mg PO DAILY 30 Days Qty: 30 0RF
Continued
ibuprofen [Advil] 200 mg Tablet
400 - 600 mg PO BIDPRN PRN (Reason: mild pain)
Discontinued
amoxicillin-pot clavulanate 500-125 mg tablet
1 tab PO BID
Patient Comments:
09/14/2024, filled on 09/13/2024 and instructed to take 1 tablet BID for 10 days. Pt. took first tablet today.
amlodipine [Norvasc] 5 mg tablet
5 mg PO DAILYPRN PRN (Reason: hypertension)
Patient Comments:
09/14/2024, last filled on 03/31/2024 for a 30-day supply; pt. takes dailyprn for high blood pressure. Prescribed to take daily per pharmacy records.
Discharge Orders:
Discharge Patient (As Directed); Ordered 09/18/24
Ordered By: Yaw Prajapati
Discharge Date and Time
Print Language: OMANI
--- NOTE | 2024-09-18 14:10 | CM ---
Patient medically cleared for discharge. Met with patient who stated that his daughter can do wound care and he does not feel he needs VN. His daughter will transport him home. Reviewed IMM, patient signed and it is now on chart.
Plan: Case management will continue to follow and assist with discharge planning. Home today.
[2024-09-18 15:33] VITALS: BP 154/82
--- NOTE | 2024-09-18 16:52 | W.PN.POD ---
Today's Communication
Today's Communication
HE will f/u in my office for all post op care F/U on 09/24/24 at 1 pm
Assessment / Plan
-
S/P Rt foot exploration for abscess drainage POD #1
Chronic nonhealing right plantar wound
No evidence of any osteomyelitis per MRI
Diet controlled type II diabetic
Charcot deformity of the right foot.
Plan : Patient seen at bedside.
Removed all surgical packing, no drainage expressed , applied dry gauze dressings and golden bandage.
Daily wound care with mupirocin that he has at home and dry gauze dressings and golden wrap
Patient has a DH pressure-relief shoe to Rt foot
Heel wt bear discussed
Reviewed Non invasive vascular studies b/L L/E - normal limits, no flow limiting stenosis.
he has VN for dressing changes at home
Subjective
Chief Complaint
Rt foot chronic non healing ulcer
Subjective
Rt foot cellulitis, osteomyelitis per xray
Objective
Temp Pulse Resp BP Pulse Ox
98 F 71 18 154/82 98
09/18/24 15:33 09/18/24 15:33 09/18/24 15:33 09/18/24 15:33 09/18/24 15:33
09/18/24 07:07
09/18/24 07:07
Vital Signs and Lab results were reviewed.
Rt foot minimal edema, no erythema
Rt plantar aspect surgical explored site clean, dry, no drainage, no bleeding, no necrosis, no foul odor, no crepitus felt
== END 2024-09-18 15:42 | disposition home or self-care (01) | DRG 580 ==
LOC: 4 EAST ACU 21:01
PROVIDERS: ADMITTING PHYSICIAN Internal Medicine; ATTENDING PHYSICIAN Internal Medicine; CONSULT PHYSICIAN Internal Medicine Infectious Disease; CONSULT PHYSICIAN Podiatrist Foot & Ankle Surgery; EMERGENCY PHYSICIAN Student in an Organized Health Care Education/Training Program; FAMILY PHYSICIAN Family Medicine
PROC: 0JDQ0ZZ Extraction of Right Foot Subcutaneous Tissue and Fascia, Open Approach (ICD-10-PCS; 2024-09-17)
DX: L97.519 Non-pressure chronic ulcer of other part of right foot with unspecified severity (principal); L03.115 Cellulitis of right lower limb; M86.171 Other acute osteomyelitis, right ankle and foot; I10 Essential (primary) hypertension; E11.69 Type 2 diabetes mellitus with other specified complication; E11.621 Type 2 diabetes mellitus with foot ulcer; M21.961 Unspecified acquired deformity of right lower leg; M19.90 Unspecified osteoarthritis, unspecified site; E66.9 Obesity, unspecified; Z68.32 Body mass index [BMI] 32.0-32.9, adult
CPT/HCPCS: 73630; 73720; 80048; 80053; 82962; 83036; 83605; 83735; 84100; 85025; 85027; 85652; 86140; 87070; 87075; 87205; 93005; 93922; 93925; 99285; A9575

== ENCOUNTER → 2025-03-26 18:10 | Outpatient (REF) | payer MEDICARE, OTHER, SELFPAY | LOC: RAD 18:10 | PROVIDERS: ATTENDING PHYSICIAN Podiatrist Foot & Ankle Surgery; FAMILY PHYSICIAN Family Medicine | DX: E11.621 Type 2 diabetes mellitus with foot ulcer (principal) | CPT/HCPCS: 73630 ==